=== PATIENT | male | born 1950 | race Caucasian/White ===

== ENCOUNTER → 2017-08-22 | Outpatient (CLI) | payer MEDICARE ==
[~2017-08-22] MED LIST: PRINIVIL5 M1 PO; SYNTHROID RP0.1 MG PO
[2017-08-22 12:00] LABS: MEAN CELL VOLUME 97 fl (78-100); MEAN CORPUSCULAR HEMOGLOBIN 31 pg (27-31); MEAN CORPUSCULAR HGB CONC 31 g/dL (33-37); MEAN PLATELET VOLUME 10.6 fl (7.4-10.4); PLATELET COUNT 54 K/mm3 (130-400); RED CELL DISTRIBUTION WIDTH 17.5 % (11.5-14.5); WHITE BLOOD COUNT 2.2 K/mm3 (4.8-10.8)
[2017-08-22 13:02] LABS: RED BLOOD COUNT 2.29 M/mm3 (4.20-5.60)
[2017-08-22 13:09] LABS: HEMATOCRIT 22.3 % (42.0-52.0); LYMPHOCYTE 43 % (20-51); MONOCYTE 9 % (3-10); NEUTROPHILS 47 % (42-75)
[2017-08-22 13:10] LABS: HYPOCHROMIA 1+; OVALOCYTES 1+; TEAR DROP CELLS 1+
[2017-08-22 13:35] LABS: BUN/CREATININE RATIO 18.7 (6.0-26.0); CALCIUM 8.8 mg/dL (8.4-10.2); POTASSIUM 4.1 mmol/L (3.6-5.0); TOTAL BILIRUBIN 0.7 mg/dL (0.2-1.3)
[2017-08-22 23:28] LABS: HEPATITIS B SURFACE ANTIBODY <2.0 (()); HEPATITIS B SURFACE ANTIGEN Negative (()); HEPATITIS C VIRUS ANTIBODY Negative (())
[2017-08-27 09:42] LABS: SERUM VISCOSITY AMS
== END ==
LOC: AMSURD 11:39 → LAB 11:39
PROVIDERS: Internal Medicine
DX: D61.818 Other pancytopenia (principal)

== ENCOUNTER → 2017-08-24 | Outpatient (CLI) | payer MEDICARE | LOC: RAD 08:51 | DX: R59.0 Localized enlarged lymph nodes (principal); K57.90 Diverticulosis of intestine, part unspecified, without perforation or abscess without bleeding ==

== ENCOUNTER → 2017-08-24 | Outpatient (CLI) | payer MEDICARE ==
[~2017-08-24] VITALS: Ht 180.3 cm; Wt 84.1 kg
[2017-08-24] VITALS (11 sets, daily range): BP systolic 91–124; BP diastolic 46–71
== END ==
LOC: AMSURD 08-23 12:09
DX: D61.818 Other pancytopenia (principal)

== ENCOUNTER → 2017-09-05 | Outpatient (CLI) | payer MEDICARE ==
[2017-08-24 19:00] VITALS: BP 109/58
== END ==
LOC: RAD 09:41
DX: I65.22 Occlusion and stenosis of left carotid artery (principal)

== ENCOUNTER → 2017-09-12 | Outpatient (CLI) | payer MEDICARE ==
[2017-09-14 15:05] VITALS: BP 101/56
== END ==
LOC: LAB 16:35
DX: C85.90 Non-Hodgkin lymphoma, unspecified, unspecified site (principal)

== ENCOUNTER → 2017-09-14 | Outpatient (CLI) | payer MEDICARE ==
[~2017-09-14] VITALS: Ht 180.3 cm; Wt 84.1 kg
[2017-09-14] VITALS (10 sets, daily range): BP systolic 97–125; BP diastolic 52–64
--- NOTE | 2017-09-14 15:05 | NUR ---
PT ARRIVES AMBULATORY TO RECIVE 2 UNITS OF PACKED RED BLOOD CELLS DUE TO A HGB= 6.5. 1118 INT 20 GAUGE PALCED IN LT FORARM. PT TOLERATED BLOOD TRANSFUSION WITHOUT ADVERSE EFFECTS. PT STATES THAT HE FEELS 85% BETTER THAT HE DID WHEN HE CAME IN. WHEN TRANSFUSION COMPLETED ,INT REMOVED AND PT AMBULATES TO PRIVATE CAR.
== END ==
LOC: AMSURD 11:09
DX: C83.09 Small cell B-cell lymphoma, extranodal and solid organ sites (principal)
CPT/HCPCS: J7050

== ENCOUNTER → 2017-12-27 | Outpatient (CLI) | payer MEDICARE ==
[2017-09-14 15:05] VITALS: BP 101/56
== END ==
LOC: RAD 08:39
DX: R91.8 Other nonspecific abnormal finding of lung field (principal); J43.9 Emphysema, unspecified; Z85.72 Personal history of non-Hodgkin lymphomas
CPT/HCPCS: Q9967

== ENCOUNTER → 2018-06-15 | Outpatient (CLI) | payer MEDICARE ==
[2017-09-14 15:05] VITALS: BP 101/56
== END ==
LOC: RAD 08:37
DX: J43.9 Emphysema, unspecified (principal); J92.9 Pleural plaque without asbestos; C83.09 Small cell B-cell lymphoma, extranodal and solid organ sites; K57.30 Diverticulosis of large intestine without perforation or abscess without bleeding; Z85.72 Personal history of non-Hodgkin lymphomas
CPT/HCPCS: Q9967

== ENCOUNTER → 2018-09-20 | Outpatient (CLI) | payer MEDICARE ==
[2017-09-14 15:05] VITALS: BP 101/56
== END ==
LOC: RAD 08:11
DX: Z13.6 Encounter for screening for cardiovascular disorders (principal); Z87.891 Personal history of nicotine dependence

== ENCOUNTER → 2018-11-30 | Outpatient (CLI) | payer MEDICARE ==
[2017-09-14 15:05] VITALS: BP 101/56
== END ==
LOC: RAD 08:51
DX: C83.09 Small cell B-cell lymphoma, extranodal and solid organ sites (principal); J92.9 Pleural plaque without asbestos; J43.9 Emphysema, unspecified; R91.1 Solitary pulmonary nodule
CPT/HCPCS: Q9967

== ENCOUNTER → 2019-03-21 | Outpatient (CLI) | payer MEDICARE ==
[2017-09-14 15:05] VITALS: BP 101/56
== END ==
LOC: RAD 08:50
DX: K11.8 Other diseases of salivary glands (principal)

== ENCOUNTER → 2019-12-10 | Outpatient (CLI) | payer MEDICARE ==
[2017-09-14 15:05] VITALS: BP 101/56
== END ==
LOC: RAD 08:52
DX: C83.09 Small cell B-cell lymphoma, extranodal and solid organ sites (principal)
CPT/HCPCS: Q9967

== ENCOUNTER → 2020-06-09 | Outpatient (CLI) | payer MEDICARE ==
[2017-09-14 15:05] VITALS: BP 101/56
== END ==
LOC: RAD 09:56
DX: K11.8 Other diseases of salivary glands (principal); C83.07 Small cell B-cell lymphoma, spleen
CPT/HCPCS: Q9967

== ENCOUNTER → 2020-10-15 | Outpatient (CLI) | payer MEDICARE ==
[2020-10-16 02:47] LABS: FOLATE (FOLIC ACID) 19.9 ng/mL (2.0-20.0)
[2020-10-19 21:15] LABS: .COPPER,S 1.49 mcg/mL (())
== END ==
LOC: LAB 10:45
PROVIDERS: Psychiatry & Neurology Neurology
DX: C85.90 Non-Hodgkin lymphoma, unspecified, unspecified site (principal); E61.1 Iron deficiency; E55.9 Vitamin D deficiency, unspecified; G62.9 Polyneuropathy, unspecified; E53.9 Vitamin B deficiency, unspecified; E53.8 Deficiency of other specified B group vitamins; Z79.899 Other long term (current) drug therapy; E61.2 Magnesium deficiency

== ENCOUNTER → 2020-10-20 | Outpatient (CLI) | payer MEDICARE | LOC: RAD 06:48 | DX: C85.90 Non-Hodgkin lymphoma, unspecified, unspecified site (principal); G31.9 Degenerative disease of nervous system, unspecified; I67.82 Cerebral ischemia; M47.812 Spondylosis without myelopathy or radiculopathy, cervical region; M89.9 Disorder of bone, unspecified | CPT/HCPCS: A9585 ==

== ENCOUNTER → 2021-01-21 | Outpatient (CLI) | payer MEDICARE | LOC: RAD 08:56 | DX: C83.09 Small cell B-cell lymphoma, extranodal and solid organ sites (principal); K11.8 Other diseases of salivary glands | CPT/HCPCS: Q9967 ==

== ENCOUNTER 2021-08-01 07:54 | Emergency (ER) | payer MEDICARE ==
[~2021-08-01] VITALS: Ht 182.9 cm; Wt 71.0 kg
[2021-08-01] MEDS ORDERED: IMBRUVICA420 MG PO (08:32)
[2021-08-01] MEDS ORDERED: LEVOTHYROXIN0.025 MG PO (08:32)
[2021-08-01] MEDS ORDERED: LEVOTHYROXINE100 MC1 PO (08:33)
[2021-08-01] MEDS ORDERED: LISINOPRIL10 MG PO (08:33)
[2021-08-01 08:57] VITALS: BP 134/76
== END 2021-08-01 08:57 | disposition home or self-care (01) ==
LOC: ED 07:54
DX: S01.511A Laceration without foreign body of lip, initial encounter (principal); W18.30XA Fall on same level, unspecified, initial encounter; W22.09XA Striking against other stationary object, initial encounter; Y92.009 Unspecified place in unspecified non-institutional (private) residence as the place of occurrence of the external cause

== ENCOUNTER → 2021-12-30 | Outpatient (CLI) | payer MEDICARE ==
[~2021-12-30] MED LIST changes: +IMBRUVICA420 MG PO; +LEVOTHYROXIN0.025 MG PO; +LEVOTHYROXINE100 MC1 PO; +LISINOPRIL10 MG PO
== END ==
LOC: RAD 12-27 10:00
DX: K57.30 Diverticulosis of large intestine without perforation or abscess without bleeding (principal); K76.0 Fatty (change of) liver, not elsewhere classified; N40.0 Benign prostatic hyperplasia without lower urinary tract symptoms; C88.0 Waldenstrom macroglobulinemia; Z85.72 Personal history of non-Hodgkin lymphomas
CPT/HCPCS: Q9967

== ENCOUNTER → 2022-11-02 | Outpatient (CLI) | payer MEDICARE | LOC: RAD 08:35 | DX: C88.0 Waldenstrom macroglobulinemia (principal) | CPT/HCPCS: Q9967 ==

== ENCOUNTER → 2023-12-21 | Outpatient (CLI) | payer MEDICARE, OTHER ==
[~2023-12-21] MED LIST changes: +Iohexol 300 - 100 ML VIAL IV ONE
== END ==
LOC: RAD 09:54
DX: C88.00 Waldenstrom macroglobulinemia not having achieved remission (principal); I25.10 Atherosclerotic heart disease of native coronary artery without angina pectoris; N42.9 Disorder of prostate, unspecified
CPT/HCPCS: Q9967